=== PATIENT | female | born 1945 | race Caucasian/White ===

== ENCOUNTER 2019-04-14 10:40 | Outpatient (CLI) | payer MEDICARE, MEDICAID ==
--- NOTE | 2019-04-14 11:36 | MMO ---
Bilateral MAMMO Bilat Screen [facility]. CLINICAL HISTORY: Patient is 73 years old and is seen for screening. The patient has the following family history of breast cancer: sister, at age 67. The patient has a history of colon cancer at age 57. VIEWS: The views performed were: bilateral craniocaudal with tomosynthesis and bilateral mediolateral oblique with tomosynthesis. FILMS COMPARED: The present examination has been compared to prior imaging studies performed at [facility] on 02/22/2010 and 07/04/2011. MAMMOGRAM FINDINGS: The breasts are heterogeneously dense, which could obscure a lesion on mammography. There are stable benign appearing calcifications seen in both breasts. There are no suspicious masses, suspicious calcifications, or new areas of architectural distortion. IMPRESSION: THERE IS NO MAMMOGRAPHIC EVIDENCE OF MALIGNANCY. A ROUTINE FOLLOW-UP MAMMOGRAM IN 1 YEAR IS RECOMMENDED. THE RESULTS OF THIS EXAM WERE SENT TO THE PATIENT. ACR BI-RADS Category 2 - Benign finding MAMMOGRAPHY NOTE: 1. A negative mammogram report should not delay a biopsy if a dominant of clinically suspicious mass is present. 2. Approximately 10% to 15% of breast cancers are not detected by mammography. 3. Adenosis and dense breasts may obscure an underlying neoplasm.
== END 2019-04-14 10:41 | disposition home or self-care (01) ==
LOC: BICMAMMO 10:40
PROVIDERS: ATTEND Family Medicine
DX: Z12.31 Encounter for screening mammogram for malignant neoplasm of breast (principal); Z80.3 Family history of malignant neoplasm of breast; Z85.038 Personal history of other malignant neoplasm of large intestine
CPT/HCPCS: 77063; 77067

== ENCOUNTER 2023-04-10 10:24 | Outpatient (CLI) | payer OTHER, MEDICAID | END 2023-04-10 10:25 | disposition home or self-care (01) | LOC: BICMAMMO 10:24 | PROVIDERS: ATTEND Nurse Practitioner Adult Health | DX: Z12.31 Encounter for screening mammogram for malignant neoplasm of breast (principal); Z78.0 Asymptomatic menopausal state; N63.21 Unspecified lump in the left breast, upper outer quadrant; N63.25 Unspecified lump in the left breast, overlapping quadrants; M85.89 Other specified disorders of bone density and structure, multiple sites | CPT/HCPCS: 77063; 77067; 77080 ==

== ENCOUNTER 2023-05-07 13:39 | Outpatient (CLI) | payer OTHER, MEDICAID | END 2023-05-07 13:40 | disposition home or self-care (01) | LOC: BICMAMMO 13:39 | PROVIDERS: ATTEND Nurse Practitioner Adult Health | DX: N63.21 Unspecified lump in the left breast, upper outer quadrant (principal); N64.89 Other specified disorders of breast | CPT/HCPCS: 76642; 77065; G0279 ==

== ENCOUNTER → 2023-06-04 | Outpatient (CLI) | payer OTHER, MEDICAID | LOC: PET 11:00 | PROVIDERS: ATTEND Internal Medicine | DX: C50.912 Malignant neoplasm of unspecified site of left female breast (principal); R91.1 Solitary pulmonary nodule | CPT/HCPCS: 78815; A9552 ==

== ENCOUNTER 2023-06-20 09:24 | Day surgery (SDC) | payer OTHER, MEDICAID ==
[2023-06-19 13:16] VITALS: BMI 26.2
[2023-06-20] MEDS ORDERED: Acetaminophen 500 MG TAB ONE (10:39)
[2023-06-20] MEDS ORDERED: Ketorolac Tromethamine 30 MG/ML VIAL ONE (10:40)
[2023-06-20] MEDS ORDERED: Bupivacaine 0.25% HCL 30 ML VIAL ONE (13:28)
[2023-06-20] MEDS ORDERED: EPINEPHrine 1 MG/ML AMP ONE (13:28)
[2023-06-20] MEDS ORDERED: fentaNYL PF 100 MCG/2 ML SYRINGE ONE (13:30)
[2023-06-20] MEDS ORDERED: Sodium Chloride 0.9% 100 ML ONE (13:38)
[2023-06-20] MEDS ORDERED: CEFAZOLIN 2 GM VIAL ONE (13:38)
[2023-06-20] MEDS ORDERED: Dexamethasone 20 MG/5 ML VIAL ONE (13:57)
[2023-06-20] MEDS ORDERED: PROPOFOL 200 MG/20 ML VIAL ONE (13:57)
[2023-06-20] MEDS ORDERED: ePHEDrine Sulfate 50 MG/10 ML VIAL ONE (13:57)
[2023-06-20] MEDS ORDERED: Lidocaine 1% PF 5 ML VIAL ONE (13:57)
== END 2023-06-20 16:06 | disposition home or self-care (01) ==
LOC: SDC 09:24
PROVIDERS: ATTEND Specialist
PROC: 0JH63WZ Insertion of Totally Implantable Vascular Access Device into Chest Subcutaneous Tissue and Fascia, Percutaneous Approach (ICD-10-PCS; principal; 2023-06-20)
PROC: 07B63ZX Excision of Left Axillary Lymphatic, Percutaneous Approach, Diagnostic (ICD-10-PCS; 2023-06-20)
DX: C50.912 Malignant neoplasm of unspecified site of left female breast (principal); C79.81 Secondary malignant neoplasm of breast; I10 Essential (primary) hypertension; E78.2 Mixed hyperlipidemia; I71.40 Abdominal aortic aneurysm, without rupture, unspecified; I73.9 Peripheral vascular disease, unspecified; Z98.51 Tubal ligation status; Z90.710 Acquired absence of both cervix and uterus; F17.210 Nicotine dependence, cigarettes, uncomplicated; Z91.048 Other nonmedicinal substance allergy status; Z79.899 Other long term (current) drug therapy
CPT/HCPCS: 36561; 38525; 71045; C1788; 88307; 88341; 88342; J0171; J1100; J1642; J1885; J2704; J3490; S0020

== ENCOUNTER 2024-01-06 12:30 | Inpatient (IN) | payer OTHER, MEDICAID ==
[2024-01-07 13:06] LABS: Hematocrit 35.7 % (34.9-44.5); Hemoglobin 12.2 g/dL (12.0-15.5); Mean Corpuscular HGB CONC 34.2 g/dL (32.0-36.0); Mean Corpuscular Hemoglobin 32.4 pg (27.0-33.0); Mean Corpuscular Volume 94.9 fl (81.6-98.3); Mean Platelet Volume 9.7 fl (7.4-10.4); Platelet Count 295 10x3/uL (150-450); RBC Distribution Width 14.5 % (11.5-14.5); Red Blood Cell (RBC) Count 3.76 10x6/uL (3.90-5.03); White Blood Cell (WBC) Count 7.6 10x3/uL (3.5-10.5)
[2024-01-07 13:21] LABS: Anion Gap 13 mmol/L (10-20); BUN (Urea Nitrogen) 12 mg/dL (9.8-20.1); Calc. Creatinine Clearance 0 mL/min (70-130); Calcium 9.3 mg/dL (7.8-10.44); Carbon Dioxide 24 mmol/L (23-31); Chloride 106 mmol/L (98-107); Estimated GFR 81; Glucose 109 mg/dL (83-110); Potassium 3.7 mmol/L (3.5-5.1); Sodium 139 mmol/L (136-145)
[2024-01-08] MEDS ORDERED: EPINEPHrine 1 MG/ML VIAL ONE (06:44)
[2024-01-08] MEDS ORDERED: Bupivacaine 0.25% HCL 30 ML VIAL ONE (06:45)
[2024-01-08] MEDS ORDERED: fentaNYL PF 100 MCG/2 ML SYRINGE ONE (06:46)
[2024-01-08] MEDS ORDERED: ePHEDrine Sulfate 50 MG/10 ML VIAL ONE (06:46)
[2024-01-08] MEDS ORDERED: PROPOFOL 20 ML ONE (06:46)
[2024-01-08] MEDS ORDERED: Rocuronium Bromide 10 MG/ML (10ML VIAL) ONE (06:48)
[2024-01-08] MEDS ORDERED: Sodium Chloride 0.9% 250 ML 250 ML ONE (06:48)
[2024-01-08] MEDS ORDERED: Phenylephrine 10 MG/ML VIAL ONE (06:49)
[2024-01-08] MEDS ORDERED: Norepinephrine 4 MG/4 ML VIAL ONE (06:55)
[2024-01-08] MEDS ORDERED: Vasopressin 20 UNITS/ML VIAL ONE (06:55)
[2024-01-08] MEDS ORDERED: Midazolam HCl 2 mg/2 ml Vial ONE (07:02)
[2024-01-08] MEDS ORDERED: Sodium Chloride 0.9% 100 ML ONE (07:28)
[2024-01-08] MEDS ORDERED: CEFAZOLIN 2 GM VIAL ONE (07:28)
[2024-01-08] MEDS ORDERED: Dexamethasone 20 MG/5 ML VIAL ONE (10:15)
[2024-01-08] MEDS ORDERED: Ondansetron PF 4 MG/2 ML Vial ONE (10:15)
[2024-01-08] MEDS ORDERED: Ketorolac Tromethamine 30 MG (1 mL) VIAL ONE (10:15)
[2024-01-08] MEDS ORDERED: SUGAMMADEX SODIUM 200 MG/2 ML VIAL ONE (10:17)
[2024-01-08] MEDS ORDERED: Ondansetron HCl/PF 4 MG/2 ML Vial IVP PRN (10:39)
[2024-01-08] MEDS ORDERED: PACU-Morphine 4MG/ML VIAL SLOW IVP PRN (10:39)
[2024-01-08] MEDS ORDERED: fentaNYL 50 mcg/mL 1 mL Vial ONE ×3 (10:43→12:07)
[2024-01-08] MEDS ORDERED: Morphine 4 MG/ML VIAL ONE (10:54)
[2024-01-08] MEDS ORDERED: HYDROmorphone 0.5 MG/0.5 ML SYRINGE ONE ×3 (12:07→14:12)
[2024-01-08] MEDS ORDERED: Promethazine HCl 25 MG/ML VIAL IM PRN (13:07)
[2024-01-08] MEDS ORDERED: traMADol HCl 50 MG TAB PO PRN (13:07)
[2024-01-08] MEDS ORDERED: Ondansetron PF 4 MG/2 ML Vial IVP PRN (13:07)
[2024-01-08] MEDS ORDERED: Morphine 4 MG/ML VIAL SLOW IVP PRN (13:07)
[2024-01-08 16:40] VITALS: BMI 26.6
[2024-01-08] MEDS: Acetaminophen 500 MG TAB PO SCH (16:55)
[2024-01-08] MEDS: CEFAZOLIN 2 GM in Sodium Chloride 0.9% 100 ML IVPB SCH (17:19)
[2024-01-08] MEDS: Ketorolac Tromethamine 30 MG (1 mL) VIAL IVP SCH (17:19)
[2024-01-08] MEDS: Sodium Chloride 0.9% 1,000 ML IV SCH (17:19)
[2024-01-08] MEDS: Ipratropium/Albuterol 3 ML NEB NEB SCH (19:00)
[2024-01-09 05:09] VITALS: TEMP 98.2
[2024-01-09 05:17] LABS: #Monocytes 1.3 thou/uL (0.11-0.59); #Neutrophils 13.5 thou/uL (1.40-6.50); %Basophils 0.1 % (0.0-1.0); %Lymphocytes 5.8 % (21.0-51.0); %Monocytes 8.3 % (0.0-10.0); %Neutrophils 85.4 % (42.0-75.0); Hematocrit 32.6 % (36.0-47.0); Hemoglobin 10.9 g/dL (12.0-16.0); Mean Corpuscular HGB CONC 33.4 g/dL (32.0-36.0); Mean Corpuscular Hemoglobin 32.2 pg (27.0-31.0); Mean Corpuscular Volume 96.2 fl (78.0-98.0); Mean Platelet Volume 9.7 fL (7.4-10.4); Platelet Count 264 10x3/uL (130-400); RBC Distribution Width 14.4 % (11.5-14.5); Red Blood Cell (RBC) Count 3.39 mill/uL (4.20-5.40); White Blood Cell (WBC) Count 15.8 10x3/uL (4.8-10.8)
[2024-01-09 05:44] LABS: Anion Gap 15 mmol/L (10-20); BUN (Urea Nitrogen) 9 mg/dL (9.8-20.1); Calc. Creatinine Clearance 70 mL/min (70-130); Carbon Dioxide 21 mmol/L (23-31); Chloride 108 mmol/L (98-107); Estimated GFR 90; Glucose 125 mg/dL (83-110); Potassium 3.6 mmol/L (3.5-5.1); Sodium 140 mmol/L (136-145)
[2024-01-09 13:12] VITALS: BP 138/69
== END 2024-01-09 12:36 | disposition home or self-care (01) | DRG 165 ==
LOC: INTOOBSV 01-08 06:39 → SURG A 01-08 06:39 → INTOOBSV 01-08 13:07 → OBSVTOIN 01-08 13:07 → 2NO 01-08 16:31
PROVIDERS: ADMIT Student in an Organized Health Care Education/Training Program; ATTEND Student in an Organized Health Care Education/Training Program
PROC: 0BBG4ZZ Excision of Left Upper Lung Lobe, Percutaneous Endoscopic Approach (ICD-10-PCS; principal; 2024-01-08)
PROC: 07B74ZZ Excision of Thorax Lymphatic, Percutaneous Endoscopic Approach (ICD-10-PCS; 2024-01-08)
DX: R91.1 Solitary pulmonary nodule (principal); Z90.710 Acquired absence of both cervix and uterus; Z98.51 Tubal ligation status
CPT/HCPCS: 36415; 36416; 71045; 80048; 85025; 85027; 86850; 86900; 86901; 88305; 88307; 88331; 88341; 88342; 94640; A4314; C1776; J0171; J0665; J1100; J1170; J1642; J1885; J2250; J2270; J2371; J2405; J2704; J3010; J3490; J7050; J7620

== ENCOUNTER 2024-03-02 07:34 | Day surgery (SDC) | payer OTHER, MEDICAID ==
[2024-02-26 13:52] VITALS: BMI 25.9
[2024-03-02] MEDS ORDERED: Isosulfan Blue 50 MG/5 ML VIAL ONE (10:11)
[2024-03-02] MEDS ORDERED: Bupivacaine 0.25% HCL 30 ML VIAL ONE (10:11)
[2024-03-02] MEDS ORDERED: EPINEPHrine 1 MG/ML VIAL ONE (10:11)
[2024-03-02] MEDS ORDERED: Lidocaine 2% PF 5 ML VIAL ONE (10:11)
[2024-03-02] MEDS ORDERED: Acetaminophen 500 MG TAB ONE (11:02)
[2024-03-02] MEDS ORDERED: Ketorolac Tromethamine 30 MG (1 mL) VIAL ONE (11:02)
[2024-03-02] MEDS ORDERED: fentaNYL 50 mcg/mL 1 mL Vial ONE (11:59)
[2024-03-02] MEDS ORDERED: Ondansetron PF 4 MG/2 ML Vial ONE (11:59)
[2024-03-02] MEDS ORDERED: PROPOFOL 20 ML ONE (11:59)
[2024-03-02] MEDS ORDERED: Lidocaine 1% PF 5 ML VIAL ONE (11:59)
[2024-03-02] MEDS ORDERED: Dexamethasone 4 mg/ml Vial ONE (11:59)
[2024-03-02] MEDS ORDERED: CEFAZOLIN 2 GM VIAL ONE (12:01)
[2024-03-02] MEDS ORDERED: Sodium Chloride 0.9% 100 ML ONE (12:02)
[2024-03-02] MEDS ORDERED: ePHEDrine Sulfate 50 MG/10 ML VIAL ONE (12:58)
== END 2024-03-02 16:20 | disposition home or self-care (01) ==
LOC: SDC 07:34
PROVIDERS: ATTEND Specialist
PROC: 0HBU0ZZ Excision of Left Breast, Open Approach (ICD-10-PCS; principal; 2024-03-02)
PROC: 07B60ZZ Excision of Left Axillary Lymphatic, Open Approach (ICD-10-PCS; 2024-03-02)
PROC: C71LYZZ Planar Nuclear Medicine Imaging of Upper Chest Lymphatics using Other Radionuclide (ICD-10-PCS; 2024-03-02)
DX: C50.412 Malignant neoplasm of upper-outer quadrant of left female breast (principal); C77.3 Secondary and unspecified malignant neoplasm of axilla and upper limb lymph nodes; Z17.1 Estrogen receptor negative status [ER-]; E78.5 Hyperlipidemia, unspecified; I73.9 Peripheral vascular disease, unspecified; F17.210 Nicotine dependence, cigarettes, uncomplicated; Z79.899 Other long term (current) drug therapy; Z90.710 Acquired absence of both cervix and uterus; Z88.6 Allergy status to analgesic agent
CPT/HCPCS: 19301; 38525; 38900; 76098; 78195; A9541; J0171; J3010; Q9968; 88305; 88307; 88341; 88342; J0665; J1100; J1885; J2001; J2405; J2704; J3490

== ENCOUNTER 2024-03-24 06:59 | Day surgery (SDC) | payer OTHER, MEDICAID ==
[2024-03-20 10:19] VITALS: BMI 25.4
[2024-03-24] MEDS ORDERED: Ketorolac Tromethamine 30 MG (1 mL) VIAL ONE (07:57)
[2024-03-24] MEDS ORDERED: Acetaminophen 500 MG TAB ONE (07:57)
[2024-03-24] MEDS ORDERED: CEFAZOLIN 2 GM VIAL ONE (08:40)
[2024-03-24] MEDS ORDERED: Sodium Chloride 0.9% 100 ML ONE (08:41)
[2024-03-24] MEDS ORDERED: Lidocaine 1% PF 5 ML VIAL ONE (08:44)
[2024-03-24] MEDS ORDERED: Dexamethasone 4 mg/ml Vial ONE (08:44)
[2024-03-24] MEDS ORDERED: Ondansetron PF 4 MG/2 ML Vial ONE (08:44)
[2024-03-24] MEDS ORDERED: PROPOFOL 20 ML ONE (08:44)
[2024-03-24] MEDS ORDERED: Bupivacaine 0.25% HCL 30 ML VIAL ONE (08:47)
[2024-03-24] MEDS ORDERED: EPINEPHrine 1 MG/ML VIAL ONE (08:47)
[2024-03-24] MEDS ORDERED: fentaNYL PF 100 MCG/2 ML SYRINGE ONE (09:24)
[2024-03-24] MEDS ORDERED: ePHEDrine Sulfate 50 MG/10 ML VIAL ONE (09:59)
== END 2024-03-24 12:25 | disposition home or self-care (01) ==
LOC: SDC 06:59
PROVIDERS: ATTEND Specialist
PROC: 07B60ZZ Excision of Left Axillary Lymphatic, Open Approach (ICD-10-PCS; principal; 2024-03-24)
DX: C50.912 Malignant neoplasm of unspecified site of left female breast (principal); C77.3 Secondary and unspecified malignant neoplasm of axilla and upper limb lymph nodes; I10 Essential (primary) hypertension; E78.2 Mixed hyperlipidemia; Z90.710 Acquired absence of both cervix and uterus; F17.210 Nicotine dependence, cigarettes, uncomplicated
CPT/HCPCS: 38525; C1713; J0171; 88307; J0665; J1100; J1885; J2405; J2704; J3490

== ENCOUNTER 2024-12-08 10:15 | Outpatient (CLI) | payer MEDICARE, MEDICAID ==
[2024-12-08] MEDS ORDERED: Iopamidol 370 76% 100 ML VIAL ONE (11:36)
== END 2024-12-08 10:16 | disposition home or self-care (01) ==
LOC: BICCT 10:15
PROVIDERS: ATTEND Internal Medicine
DX: C50.412 Malignant neoplasm of upper-outer quadrant of left female breast (principal); C34.12 Malignant neoplasm of upper lobe, left bronchus or lung; R39.81 Functional urinary incontinence; R91.1 Solitary pulmonary nodule; R91.8 Other nonspecific abnormal finding of lung field; I71.43 Infrarenal abdominal aortic aneurysm, without rupture; I82.90 Acute embolism and thrombosis of unspecified vein; N32.89 Other specified disorders of bladder; E27.8 Other specified disorders of adrenal gland; I74.09 Other arterial embolism and thrombosis of abdominal aorta; Z98.890 Other specified postprocedural states; Z90.710 Acquired absence of both cervix and uterus
CPT/HCPCS: 71260; 74177; Q9967